=== PATIENT | female | born 1960 | race Caucasian/White ===

== ENCOUNTER 2020-04-10 11:28 | Observation (INO) | payer MEDICARE ==
--- NOTE | 2020-04-10 11:59 | XRAY ---
Indication: Chest pain. Comparison: None Portable chest demonstrates normal heart and lungs. Bony thorax intact.
[2020-04-10 12:17] LABS: Absolute Neutrophil Ct (ANC) 9.11 (1.4-6.9); BASOPHIL % 0.1 % (0.0-0.4); Basophil (Absolute #) 0.01 (0-0.4); Eosinophil % 0.2 % (0.00-5.0); Eosinophil (Absolute #) 0.02 (0-0.5); Hematocrit 38.2 % (35-47); Hemoglobin 12.7 gm/dl (12.0-16.0); Lymphocyte (Absolute #) 0.98 (1.0-4.6); Lymphocytes % 9.3 % (24.0-44.0); Mean Cell Volume 89.7 fl (78-100); Mean Corpuscular Hemoglobin 29.8 pg (26-32); Mean Corpuscular Hgb Concent. 33.2 g/dl (32-36); Mean Platelet Volume 9.9 fl (7.5-11.0); Monocyte (Absolute #) 0.43 (0.0-1.3); Monocytes % 4.1 % (0.0-12.0); Neutrophil % 86.3 % (36.0-66.0); Platelet Count 389 K/mm3 (150-450); Red Blood Count 4.26 M/mm3 (4.1-5.4); Red Cell Distribution Width 12.5 % (11.5-14.0); White Blood Count 10.6 K/mm3 (4.0-10.5)
[2020-04-10] MEDS ORDERED: Sodium Chloride 0.9% 1000 ML 1,000 ML IV STA (12:21)
[2020-04-10] MEDS ORDERED: Nitrostat 0.4 MG (ED) SL ONE ×2 (12:21→12:30)
[2020-04-10 12:24] LABS: INR 1.05 (0.8-3.0); PROTIME 11.9 SECONDS (9.95-12.35)
--- NOTE | 2020-04-10 12:30 | ERPHSYRPT ---
- History of Present Illness Time Seen by Provider: 04/10/20 12:10 Historian: patient, EMS Exam Limitations: no limitations Patient Subjective Stated Complaint: . Triage Nursing Assessment: . Physician History: 59 yo female bib ems for cp Started about 5am. left sided with radiation to left shoulder. Pt also experiencing reflux dz. Known CAD, last cath was 1 yr ago with "small blockage" which was not stented. Not similar to previous CPs. Worse with ambulation. Timing/Duration: today, hour(s) (7) Activities at Onset: rest Quality: sharpness, tightness Location: substernal, epigastric Chest Pain Radiation: arm Severity of Pain-Max: severe Severity of Pain-Current: moderate Modifying Factors: Improves With: nothing Prior Chest Pain/Cardiac Workup: angina Nitro Today/Relief: no nitro taken today Aspirin Treatment Today: no aspirin today Allergies/Adverse Reactions: ciprofloxacin [From Cipro] Allergy (Severe, Verified 04/10/20 11:47) codeine Allergy (Severe, Verified 04/10/20 11:47) suture Allergy (Severe, Verified 04/10/20 11:47) vicrol sutures Bisphosphonates Adverse Reaction (Verified 04/10/20 11:47) erythromycin base [From Staticin] Adverse Reaction (Verified 04/10/20 11:47) ethyl alcohol [From Staticin] Adverse Reaction (Verified 04/10/20 11:47) Home Medications: Azilsartan Medoxomil [Edarbi] 40 mg PO DAILY 04/10/20 [History] Cyclobenzaprine HCl 10 mg PO DAILY 04/10/20 [History] Duloxetine HCl 60 mg PO DAILY 04/10/20 [History] Levothyroxine Sodium [Synthroid] 112 tab PO DAILY 04/10/20 [History] Primidone 50 MG [Mysoline 50Mg] 50 mg PO DAILY 04/10/20 [History] Vilazodone HCl [Viibryd] 1 tab PO DAILY 04/10/20 [History] Hx Tetanus, Diphtheria Vaccination/Date Given: Yes Hx Influenza Vaccination/Date Given: Yes Hx Pneumococcal Vaccination/Date Given: No Immunizations Up to Date: Yes Travel Risk - International Travel Have you traveled outside of the country in past 3 weeks: No - Coronavirus Screening Are you exhibiting any of the following symptoms?: No Close contact with a COVID-19 positive Pt in past 14-21 Days: No - Review of Systems Constitutional: No Fever, No Chills Eyes: No Symptoms Ears, Nose, & Throat: No Symptoms Respiratory: No Cough, No Dyspnea Cardiac: Chest Pain, No Edema, No Syncope Abdominal/Gastrointestinal: No Abdominal Pain, No Nausea, No Vomiting, No Diarrhea Genitourinary Symptoms: No Dysuria Musculoskeletal: No Back Pain, No Neck Pain Skin: No Rash Neurological: No Dizziness, No Focal Weakness, No Sensory Changes Psychological: No Symptoms Endocrine: No Symptoms All Other Systems: Reviewed and Negative - Past Medical History Pertinent Past Medical History: Yes Neurological History: Migraines Cardiac History: Hypertension Endocrine Medical History: Diabetes Type I, Hypothyroidism Musculoskeletal History: Osteoarthritis GI Medical History: GERD, Irritable Bowel Psycho-Social History: Anxiety, Depression - Past Surgical History Past Surgical History: Yes Musculoskeletal: Orthopedic Surgery Female Surgical History: Hysterectomy, Tubal Ligation - Social History Smoking Status: Never smoker Exposure to second hand smoke: No Drug Use: none Patient Lives Alone: Yes - Nursing Vital Signs Nursing Vital Signs: Initial Vital Signs Temperature 98.0 F 04/10/20 11:35 Pulse Rate 110 H 04/10/20 11:35 Respiratory Rate 22 04/10/20 11:35 Blood Pressure 135/84 04/10/20 11:35 O2 Sat by Pulse Oximetry 100 04/10/20 11:35 Pain Scale Pain Intensity 5 - Physical Exam General Appearance: no apparent distress, alert Eye Exam: PERRL/EOMI, eyes nml inspection Ears, Nose, Throat Exam: normal ENT inspection, moist mucous membranes Neck Exam: normal inspection, non-tender, supple, full range of motion Respiratory Exam: normal breath sounds, lungs clear, No respiratory distress Cardiovascular Exam: regular rate/rhythm, normal heart sounds Gastrointestinal/Abdomen Exam: soft, No tenderness, No mass Back Exam: normal inspection, No CVA tenderness, No vertebral tenderness Extremity Exam: normal inspection, normal range of motion Neurologic Exam: alert, oriented x 3, cooperative, normal mood/affect, sensation nml, No motor deficits Skin Exam: normal color, warm, dry SpO2: 98 - Course EKG Interpreted by Me: Sinus Tach, NORMAL ST-T - Radiology Exams Chest X-ray Interpretation: Discussed w/ radiologist, Negative Ordered Tests: Active Orders 24 hr Category Date Time Status Bedrest ROUTINE Activity 04/10/20 13:42 Active Up With Assistance ROUTINE Activity 04/10/20 13:39 Active Admit as Inpatient ROUTINE Care 04/10/20 13:40 Active Call Admit Doctor for Orders ON ADMISSION Care 04/10/20 13:40 Active Hat Block Maker STAT Care 04/10/20 11:39 Active Code Status Order ROUTINE Care 04/10/20 13:39 Active EKG-ER Only STAT Care 04/10/20 11:38 Active Fall Protocol ROUTINE Care 04/10/20 13:42 Active IV Care Q6H Care 04/10/20 13:39 Active IV Insertion STAT Care 04/10/20 11:38 Active Intake and Output Q12H Care 04/10/20 13:39 Active Oxygen-ED Only Nasal Cannula 2 lpm Care 04/10/20 11:38 Active POCT Glucose Check ACHS Care 04/10/20 13:39 Active POCT Glucose Check STAT Care 04/10/20 12:26 Active Pulse Oximetry (ED) STAT Care 04/10/20 11:38 Active Telemetry q6h Care 04/10/20 13:39 Active Vital Signs Q2H Care 04/10/20 13:41 Active Clear Liquid Diet 04/10/20 Dinner Active CHEST 1 VIEW (PORTABLE) Stat Exams 04/10/20 11:38 Completed ABG [ARTERIAL BLOOD GASES] Stat Lab 04/10/20 13:05 Completed BMP Stat Lab 04/10/20 11:33 Completed CBC W DIFF AM.LAB Lab 04/11/20 04:00 Ordered CBC W DIFF Stat Lab 04/10/20 11:33 Completed CMP AM.LAB Lab 04/11/20 04:00 Ordered D-DIMER QUANTITATIVE Stat Lab 04/10/20 12:22 Completed Hepatic Function Panel Stat Lab 04/10/20 11:33 Completed LIPASE Stat Lab 04/10/20 11:33 Completed NT PRO BNP Stat Lab 04/10/20 11:33 Completed POCT GLUCOSE Stat Lab 04/10/20 13:41 Completed PROTIME WITH INR Stat Lab 04/10/20 11:33 Completed PTT Stat Lab 04/10/20 11:33 Completed TROPONIN Q3H Lab 04/10/20 11:33 Completed TROPONIN Q3H Lab 04/10/20 14:45 Ordered Medication Summary Generic Name Dose Route Start Last Admin Trade Name Freq PRN Reason Stop Dose Admin Acetaminophen 650 mg 04/10/20 13:39 Tylenol 325 Mg PO 05/10/20 13:38 Q4H PRN PRN PAIN AND/OR FEVER Insulin Human Regular 100 unit 100 mls @ 7.711 mls/hr 04/10/20 13:20 04/10/20 13:36 / Sodium Chloride IV 05/10/20 13:19 0.1 unit/kg/hr .[id number] PRN 7.711 mls/hr DKA/HYPERGLYCEMIA Administration Protocol 0.1 UNIT/KG/HR Sodium Chloride 1,000 mls @ 200 mls/hr 04/10/20 13:45 04/10/20 13:36 Sodium Chloride 0.9% 1000 Ml IV 05/10/20 13:44 200 mls/hr .Q5H RJ Administration Sodium Chloride 1,000 mls @ 100 mls/hr 04/10/20 13:45 Sodium Chloride 0.9% 1000 Ml IV 05/10/20 13:44 .Q10H RJ Ondansetron HCl 4 mg 04/10/20 13:39 Zofran 4 Mg/2 Ml Vial IV 05/10/20 13:38 Q6H PRN PRN NAUSEA/VOMITING Discontinued Medications Generic Name Dose Route Start Last Admin Trade Name Freq PRN Reason Stop Dose Admin Calcium Gluconate 1,000 mg 04/10/20 13:21 04/10/20 13:37 Calcium Gluconate 10% 1000 Mg IV 04/10/20 13:22 1,000 mg STAT ONE Administration Calcium Gluconate Confirm 04/10/20 13:27 Calcium Gluconate 10% 1000 Mg Administered 04/10/20 13:28 Dose 1,000 mg IV .STK-MED ONE Sodium Chloride 1,000 mls @ 999 mls/hr 04/10/20 12:21 04/10/20 12:35 Sodium Chloride 0.9% 1000 Ml IV 04/10/20 13:21 999 mls/hr .Q1H1M STA Administration Sodium Chloride Confirm 04/10/20 12:31 Sodium Chloride 0.9% 1000 Ml Administered 04/10/20 12:32 Dose 1,000 mls @ ud .ROUTE .STK-MED ONE Sodium Chloride Confirm 04/10/20 13:29 Sodium Chloride 0.9% 100 Ml Ivpb Administered 04/10/20 13:30 Dose 100 mls @ ud IV .STK-MED ONE Insulin Human Regular 10 unit 04/10/20 12:41 04/10/20 12:47 Humulin R IV 04/10/20 12:42 10 unit STAT ONE Administration Insulin Human Regular Confirm 04/10/20 12:47 Humulin R Administered 04/10/20 12:48 Dose 10 unit .ROUTE .STK-MED ONE Insulin Human Regular Confirm 04/10/20 13:29 Humulin R Administered 04/10/20 13:30 Dose 100 unit .ROUTE .STK-MED ONE Nitroglycerin 0.4 mg 04/10/20 12:21 04/10/20 12:35 Nitrostat 0.4 Mg (Ed) SL 04/10/20 12:22 0.4 mg STAT ONE Administration Nitroglycerin Confirm 04/10/20 12:30 Nitrostat 0.4 Mg (Ed) Administered 04/10/20 12:31 Dose 0.4 mg SL .STK-MED ONE Sodium Bicarbonate 50 meq 04/10/20 13:21 04/10/20 13:36 Sodium Bicarbonate 50 Meq/50 Ml Abboject IV 04/10/20 13:22 50 meq STAT ONE Administration Sodium Bicarbonate Confirm 04/10/20 13:29 Sodium Bicarbonate 50 Meq/50 Ml Abboject Administered 04/10/20 13:30 Dose 50 meq IV .STK-MED ONE Lab/Rad Data: Laboratory Result Diagrams 04/10/20 11:33 04/10/20 11:33 Laboratory Results 04/10/20 04/10/20 04/10/20 Range/Units 13:41 13:05 12:22 WBC (4.0-10.5) K/mm3 RBC (4.1-5.4) M/mm3 Hgb (12.0-16.0) gm/dl Hct (35-47) % MCV (78-100) fl MCH (26-32) pg MCHC (32-36) g/dl RDW (11.5-14.0) % Plt Count (150-450) K/mm3 MPV (7.5-11.0) fl Gran % (36.0-66.0) % Eos # (Auto) (0-0.5) Absolute Lymphs (auto) (1.0-4.6) Absolute Monos (auto) (0.0-1.3) Lymphocytes % (24.0-44.0) % Monocytes % (0.0-12.0) % Eosinophils % (0.00-5.0) % Basophils % (0.0-0.4) % Absolute Granulocytes (1.4-6.9) Basophils # (0-0.4) PT (9.95-12.35) SECONDS INR (0.8-3.0) APTT (25.3-37.0) SECONDS D-Dimer 264 (215-500) ng/mL Puncture Site RIGHT BRACHIAL pCO2 25 L (35-45) mmHg pO2 92 (75-100) mmHg Base Excess -13.6 L (-2.0-2.0) O2 Saturation 96.2 (94-100) g/dF ABG pH 7.27 L (7.35-7.45) ABG HCO3 11.5 L* (22-28) ABG O2 Sat (Measured) 97.2 (95-100) % Wade Test NOT APPLICABLE A-a Gradient 26 a/A Ratio 0.78 Hemoglobin 12.2 Carboxyhemoglobin 0.4 (0.0-6.9) % THgb Methemoglobin 0.7 L (1.4-1.5) % Temperature 37.0 C POC O2 Flow Rate 21 % Sodium (137-145) mmol/L Potassium 4.9 (3.5-5.1) mmol/L Chloride (98-107) mmol/L Carbon Dioxide (22-30) mmol/L Anion Gap (5-15) MEQ/L BUN (7-17) mg/dL Creatinine (0.52-1.04) mg/dL Estimated GFR ML/MIN Glucose (74-106) mg/dL POC Glucometer 390 H (74 to 106) mg/dL Calcium (8.4-10.2) mg/dL Total Bilirubin (0.2-1.3) mg/dL Direct Bilirubin (0.0-0.4) mg/dL AST (14-36) U/L ALT (0-35) U/L Alkaline Phosphatase (38-126) U/L Troponin I (0.000-0.034) ng/mL NT-Pro-B Natriuret Pep (0-900) pg/mL Serum Total Protein (6.3-8.2) g/dL Albumin (3.5-5.0) g/dL Lipase (23-300) U/L 04/10/20 04/10/20 04/10/20 Range/Units 11:33 11:33 11:33 WBC (4.0-10.5) K/mm3 RBC (4.1-5.4) M/mm3 Hgb (12.0-16.0) gm/dl Hct (35-47) % MCV (78-100) fl MCH (26-32) pg MCHC (32-36) g/dl RDW (11.5-14.0) % Plt Count (150-450) K/mm3 MPV (7.5-11.0) fl Gran % (36.0-66.0) % Eos # (Auto) (0-0.5) Absolute Lymphs (auto) (1.0-4.6) Absolute Monos (auto) (0.0-1.3) Lymphocytes % (24.0-44.0) % Monocytes % (0.0-12.0) % Eosinophils % (0.00-5.0) % Basophils % (0.0-0.4) % Absolute Granulocytes (1.4-6.9) Basophils # (0-0.4) PT 11.9 (9.95-12.35) SECONDS INR 1.05 (0.8-3.0) APTT 34.0 (25.3-37.0) SECONDS D-Dimer (215-500) ng/mL Puncture Site pCO2 (35-45) mmHg pO2 (75-100) mmHg Base Excess (-2.0-2.0) O2 Saturation (94-100) g/dF ABG pH (7.35-7.45) ABG HCO3 (22-28) ABG O2 Sat (Measured) (95-100) % Wade Test A-a Gradient a/A Ratio Hemoglobin Carboxyhemoglobin (0.0-6.9) % THgb Methemoglobin (1.4-1.5) % Temperature C POC O2 Flow Rate % Sodium 124 L (137-145) mmol/L Potassium 5.5 H (3.5-5.1) mmol/L Chloride 88 L (98-107) mmol/L Carbon Dioxide 16 L* (22-30) mmol/L Anion Gap 25.4 H (5-15) MEQ/L BUN 18 H (7-17) mg/dL Creatinine 0.89 (0.52-1.04) mg/dL Estimated GFR > 60.0 ML/MIN Glucose 518 H* (74-106) mg/dL POC Glucometer (74 to 106) mg/dL Calcium 9.5 (8.4-10.2) mg/dL Total Bilirubin 0.50 (0.2-1.3) mg/dL Direct Bilirubin 0.2 (0.0-0.4) mg/dL AST 27 (14-36) U/L ALT 19 (0-35) U/L Alkaline Phosphatase 225 H (38-126) U/L Troponin I < 0.012 (0.000-0.034) ng/mL NT-Pro-B Natriuret Pep 123 (0-900) pg/mL Serum Total Protein 8.2 (6.3-8.2) g/dL Albumin 4.8 (3.5-5.0) g/dL Lipase 36 (23-300) U/L 04/10/20 Range/Units 11:33 WBC 10.6 H (4.0-10.5) K/mm3 RBC 4.26 (4.1-5.4) M/mm3 Hgb 12.7 (12.0-16.0) gm/dl Hct 38.2 (35-47) % MCV 89.7 (78-100) fl MCH 29.8 (26-32) pg MCHC 33.2 (32-36) g/dl RDW 12.5 (11.5-14.0) % Plt Count 389 (150-450) K/mm3 MPV 9.9 (7.5-11.0) fl Gran % 86.3 H (36.0-66.0) % Eos # (Auto) 0.02 (0-0.5) Absolute Lymphs (auto) 0.98 L (1.0-4.6) Absolute Monos (auto) 0.43 (0.0-1.3) Lymphocytes % 9.3 L (24.0-44.0) % Monocytes % 4.1 (0.0-12.0) % Eosinophils % 0.2 (0.00-5.0) % Basophils % 0.1 (0.0-0.4) % Absolute Granulocytes 9.11 H (1.4-6.9) Basophils # 0.01 (0-0.4) PT (9.95-12.35) SECONDS INR (0.8-3.0) APTT (25.3-37.0) SECONDS D-Dimer (215-500) ng/mL Puncture Site pCO2 (35-45) mmHg pO2 (75-100) mmHg Base Excess (-2.0-2.0) O2 Saturation (94-100) g/dF ABG pH (7.35-7.45) ABG HCO3 (22-28) ABG O2 Sat (Measured) (95-100) % Wade Test A-a Gradient a/A Ratio Hemoglobin Carboxyhemoglobin (0.0-6.9) % THgb Methemoglobin (1.4-1.5) % Temperature C POC O2 Flow Rate % Sodium (137-145) mmol/L Potassium (3.5-5.1) mmol/L Chloride (98-107) mmol/L Carbon Dioxide (22-30) mmol/L Anion Gap (5-15) MEQ/L BUN (7-17) mg/dL Creatinine (0.52-1.04) mg/dL Estimated GFR ML/MIN Glucose (74-106) mg/dL POC Glucometer (74 to 106) mg/dL Calcium (8.4-10.2) mg/dL Total Bilirubin (0.2-1.3) mg/dL Direct Bilirubin (0.0-0.4) mg/dL AST (14-36) U/L ALT (0-35) U/L Alkaline Phosphatase (38-126) U/L Troponin I (0.000-0.034) ng/mL NT-Pro-B Natriuret Pep (0-900) pg/mL Serum Total Protein (6.3-8.2) g/dL Albumin (3.5-5.0) g/dL Lipase (23-300) U/L - Progress Progress: improved Air Movement: good Progress Note: 04/10/20 13:48 CP resolved. NTG did not help except for TUCKER and burning in mouth. Labs show DKA. IVF, insulin drip, Na bicar, calcium gluconate. Will admit for treatment. Pt agrees with plan. Blood Culture(s) Obtained: No Antibiotics given: No Discussed with : Naina Will see patient in: hospital (full admit) Counseled pt/family regarding: lab results, diagnosis, rad results - Departure Departure Disposition: In-patient Admission Clinical Impression: DKA (diabetic ketoacidoses), Chest pain Condition: Stable Critical Care Time: No
[2020-04-10] MEDS ORDERED: Sodium Chloride 0.9% 1000 ML 1,000 ML ONE (12:31)
[2020-04-10 12:38] LABS: ALBUMIN 4.8 g/dL (3.5-5.0); ALKALINE PHOSPHATASE 225 U/L (38-126); ANION GAP 25.4 MEQ/L (5-15); BLOOD UREA NITROGEN 18 mg/dL (7-17); CHLORIDE 88 mmol/L (98-107); Calcium 9.5 mg/dL (8.4-10.2); Creatinine 1 0.89 mg/dL (0.52-1.04); Direct Bilirubin 0.2 mg/dL (0.0-0.4); EST GLOMERULAR FILTRATION RATE > 60.0 ML/MIN; LIPASE 36 U/L (23-300); NT PRO BNP 123 pg/mL (0-900); Potassium 5.5 mmol/L (3.5-5.1); SGOT/AST 27 U/L (14-36); SGPT/ALT 19 U/L (0-35); SODIUM 124 mmol/L (137-145); Total Protein 8.2 g/dL (6.3-8.2)
[2020-04-10] MEDS ORDERED: HUMULIN R IV ONE (12:41)
[2020-04-10 12:42] LABS: Carbon Dioxide 16 mmol/L (22-30); Glucose 518 mg/dL (74-106)
[2020-04-10] MEDS ORDERED: HUMULIN R ONE ×2 (12:47→13:29)
[2020-04-10 13:14] LABS: A-aADO2 26; ABG HEMOGLOBIN 12.2; ABG POTASSIUM 4.9 (3.5-5.1); ABG SITE RIGHT BRACHIAL; ARTERIAL BLD GAS O2 SATURATION 97.2 % (95-100); ARTERIAL BLOOD GAS BASE EXCESS -13.6 (-2.0-2.0); ARTERIAL BLOOD GAS FIO2 21 %; ARTERIAL BLOOD GAS PCO2 25 mmHg (35-45); ARTERIAL BLOOD GAS PO2 92 mmHg (75-100); ARTERIAL BLOOD GAS pH 7.27 (7.35-7.45); CARBOXYHEMOGLOBIN 0.4 % THgb (0.0-6.9); HCO3- 11.5 (22-28); HGB O2 SAT 96.2 g/dF (94-100); Methhemoglobin 0.7 % (1.4-1.5); paO2 pAO1 0.78
[2020-04-10] MEDS ORDERED: HUMULIN R 100 UNIT in Sodium Chloride 0.9% 100 ML IVPB 100 ML IV PRN (13:20)
[2020-04-10] MEDS ORDERED: SODIUM BICARBONATE 50 MEQ/50 ML ABBOJECT IV ONE ×2 (13:21→13:29)
[2020-04-10] MEDS ORDERED: Calcium Gluconate 10% 1000 MG IV ONE ×2 (13:21→13:27)
[2020-04-10] MEDS ORDERED: Sodium Chloride 0.9% 100 ML IVPB 100 ML IV ONE (13:29)
[2020-04-10] MEDS ORDERED: Zofran 4 MG/2 ML VIAL IV PRN (13:39)
[2020-04-10] MEDS ORDERED: TYLENOL 325 MG PO PRN (13:39)
[2020-04-10] MEDS ORDERED: Sodium Chloride 0.9% 1000 ML 1,000 ML IV SCH (13:45)
[2020-04-10] MEDS: Sodium Chloride 0.9% 1000 ML 1,000 ML IV SCH ×2 (14:57→18:21)
[2020-04-10 15:39] LABS: ANION GAP 17.3 MEQ/L (5-15); BLOOD UREA NITROGEN 18 mg/dL (7-17); CHLORIDE 95 mmol/L (98-107); Calcium 9.8 mg/dL (8.4-10.2); Carbon Dioxide 21 mmol/L (22-30); Creatinine 1 0.75 mg/dL (0.52-1.04); EST GLOMERULAR FILTRATION RATE > 60.0 ML/MIN; Glucose 225 mg/dL (74-106); Potassium 4.1 mmol/L (3.5-5.1); SODIUM 130 mmol/L (137-145)
[2020-04-10] MEDS ORDERED: Lantus Insulin SQ ONE (16:33)
[2020-04-10] MEDS ORDERED: HUMALOG SQ PRN (16:41)
[2020-04-10] MEDS ORDERED: MEDICATION INTERVENTION MC SCH ×2 (17:00)
[2020-04-10] MEDS ORDERED: MAALOX ES 30 ML UNIT DOSE ONE (18:18)
[2020-04-10] MEDS ORDERED: MAALOX ES 30 ML UNIT DOSE PO ONE (18:21)
[2020-04-10] MEDS ORDERED: MAALOX ES 30 ML UNIT DOSE PO PRN (19:19)
[2020-04-10] MEDS ORDERED: PROTONIX 40 MG IV IV SCH (19:30)
[2020-04-10] MEDS ORDERED: BENADRYL 25 MG CAPSULE PO SCH (22:00)
[2020-04-10] MEDS ORDERED: AZILSARTAN MEDOXOMIL 40 MG PO SCH (22:00)
[2020-04-10] MEDS ORDERED: NON-FORMULARY ITEM (Duloxetine Hcl [Duloxetine Hcl] 60 MG) PO SCH (22:00)
[2020-04-10] MEDS ORDERED: [UNRECOGNIZED DRUG - REMARK] PO SCH (22:00)
[2020-04-10] MEDS ORDERED: MYSOLINE 50MG PO SCH (22:00)
[2020-04-10] MEDS ORDERED: Cymbalta 30 MG Capsule PO SCH (22:00)
[2020-04-11] MEDS: Sodium Chloride 0.9% 1000 ML 1,000 ML IV SCH (03:57)
[2020-04-11 04:42] VITALS: O2SAT 98
[2020-04-11 05:11] LABS: Absolute Neutrophil Ct (ANC) 4.09 (1.4-6.9); BASOPHIL % 0.3 % (0.0-0.4); Basophil (Absolute #) 0.02 (0-0.4); Eosinophil % 1.6 % (0.00-5.0); Eosinophil (Absolute #) 0.12 (0-0.5); Hemoglobin 10.5 gm/dl (12.0-16.0); Lymphocyte (Absolute #) 2.37 (1.0-4.6); Mean Cell Volume 91.2 fl (78-100); Mean Corpuscular Hemoglobin 29.9 pg (26-32); Mean Corpuscular Hgb Concent. 32.8 g/dl (32-36); Mean Platelet Volume 9.3 fl (7.5-11.0); Monocytes % 10.8 % (0.0-12.0); Neutrophil % 55.3 % (36.0-66.0); Platelet Count 360 K/mm3 (150-450); Red Blood Count 3.51 M/mm3 (4.1-5.4); Red Cell Distribution Width 12.8 % (11.5-14.0); White Blood Count 7.4 K/mm3 (4.0-10.5)
[2020-04-11 05:29] LABS: ALBUMIN 3.6 g/dL (3.5-5.0); ALKALINE PHOSPHATASE 140 U/L (38-126); ANION GAP 13.1 MEQ/L (5-15); BLOOD UREA NITROGEN 10 mg/dL (7-17); CHLORIDE 101 mmol/L (98-107); Calcium 8.6 mg/dL (8.4-10.2); Carbon Dioxide 21 mmol/L (22-30); Creatinine 1 0.68 mg/dL (0.52-1.04); EST GLOMERULAR FILTRATION RATE > 60.0 ML/MIN; Glucose 103 mg/dL (74-106); Potassium 4.4 mmol/L (3.5-5.1); SGOT/AST 30 U/L (14-36); SGPT/ALT 14 U/L (0-35); SODIUM 132 mmol/L (137-145); Total Protein 6.4 g/dL (6.3-8.2)
[2020-04-11 07:33] VITALS: BP 124/78; PULSE 92
[2020-04-11] MEDS ORDERED: VILAZODONE HCL PO SCH (10:00)
[2020-04-11] MEDS ORDERED: SYNTHROID 112 MCG PO SCH (10:00)
--- NOTE | 2020-04-11 20:23 | PCM.SSS ---
History of Present Illness - Chief Complaint Chief Complaint: DKA, CP R/O Date: 04/11/20 History of Present Illness: is a 59 year old female seen and examined following ER admission for chest pain and DKA. Patient reports that she was having chest pain that it felt like a pressure sensation and she couldnt catch her breath. Patient reports that she wasnt aware that her her BS were elevated. She reports this she bent the needle of her insulin pump and does not think it was working properly. She reports that she had a TUCKER yesterday and continues to have a mild TUCKER this am. Patient also reports that Medications & Allergies Home Medications: Home Medication List Azilsartan Medoxomil [Edarbi] 40 mg PO HS 04/10/20 [History Confirmed 04/10/20] Cyclobenzaprine HCl 10 mg PO HS 04/10/20 [History Confirmed 04/10/20] Diphenhydramine HCl 25 mg [Benadryl 25 mg Capsule] 25 mg PO Q4H PRN PRN 04/10/20 [History Confirmed 04/10/20] Diphenhydramine HCl [Benadryl Allergy] 50 mg PO HS 04/10/20 [History Confirmed 04/10/20] Duloxetine HCl 60 mg PO HS 04/10/20 [History Confirmed 04/10/20] Levothyroxine Sodium [Synthroid] 112 mcg PO DAILY 04/10/20 [History Confirmed 04/10/20] Primidone 50 MG [Mysoline 50Mg] 50 mg PO HS 04/10/20 [History Confirmed 04/10/20] Vilazodone HCl [Viibryd] 1 tab PO DAILY 04/10/20 [History Confirmed 04/10/20] PANTOPRAZOLE 40 mg Tablet [Protonix 40MG Tablet] 40 mg PO DAILY 30 Days tab 04/11/20 [Rx] Allergies/Adverse Reactions: Allergies Allergy/AdvReac Type Severity Reaction Status Date / Time ciprofloxacin [From Cipro] Allergy Severe Verified 04/10/20 11:47 codeine Allergy Severe Verified 04/10/20 11:47 suture Allergy Severe Verified 04/10/20 11:47 Bisphosphonates AdvReac Verified 04/10/20 11:47 erythromycin base AdvReac Verified 04/10/20 11:47 [From Staticin] ethyl alcohol [From Staticin] AdvReac Verified 04/10/20 11:47 - Past Medical History Past Medical History: Yes Neurological History: Migraines Cardiac History: Hypertension Respiratory History: Sleep Apnea Endocrine Medical History: Diabetes Type I, Hypothyroidism Musculoskelatal History: Osteoarthritis GI Medical History: GERD, Irritable Bowel Pyscho-Social History: Anxiety, Depression - Female History Are you now?: No - Past Surgical History Past Surgical History: Yes Musculskeletal Surgical Hx: Orthopedic Surgery Female Surgical History: Hysterectomy, Tubal Ligation - Social History Smoking Status: Never smoker Exposure to second hand smoke: No Alcohol: None Drug Use: none - Physical Exam Vital Signs: Vital Signs - 24 hr Temp Pulse Resp BP Pulse Ox 04/11/20 07:35 98 04/11/20 07:31 98 F 92 H 18 124/78 98 04/11/20 04:00 98.4 F 103 H 18 113/44 98 04/11/20 00:01 75 04/11/20 00:00 98.5 F 102 H 18 117/60 97 04/10/20 20:00 98.3 F 75 24 106/59 98 Results - Labs Lab/Micro Results: Lab Results-Last 24 Hours 04/10/20 04/10/20 04/11/20 Range/Units 19:51 23:59 03:57 WBC (4.0-10.5) K/mm3 RBC (4.1-5.4) M/mm3 Hgb (12.0-16.0) gm/dl Hct (35-47) % MCV (78-100) fl MCH (26-32) pg MCHC (32-36) g/dl RDW (11.5-14.0) % Plt Count (150-450) K/mm3 MPV (7.5-11.0) fl Gran % (36.0-66.0) % Eos # (Auto) (0-0.5) Absolute Lymphs (auto) (1.0-4.6) Absolute Monos (auto) (0.0-1.3) Lymphocytes % (24.0-44.0) % Monocytes % (0.0-12.0) % Eosinophils % (0.00-5.0) % Basophils % (0.0-0.4) % Absolute Granulocytes (1.4-6.9) Basophils # (0-0.4) Sodium (137-145) mmol/L Potassium (3.5-5.1) mmol/L Chloride (98-107) mmol/L Carbon Dioxide (22-30) mmol/L Anion Gap (5-15) MEQ/L BUN (7-17) mg/dL Creatinine (0.52-1.04) mg/dL Estimated GFR ML/MIN Glucose (74-106) mg/dL POC Glucometer 282 H 166 H 94 (74 to 106) mg/dL Calcium (8.4-10.2) mg/dL Total Bilirubin (0.2-1.3) mg/dL AST (14-36) U/L ALT (0-35) U/L Alkaline Phosphatase (38-126) U/L Serum Total Protein (6.3-8.2) g/dL Albumin (3.5-5.0) g/dL 04/11/20 04/11/20 04/11/20 Range/Units 04:20 04:20 07:27 WBC 7.4 (4.0-10.5) K/mm3 RBC 3.51 L (4.1-5.4) M/mm3 Hgb 10.5 L (12.0-16.0) gm/dl Hct 32.0 L (35-47) % MCV 91.2 (78-100) fl MCH 29.9 (26-32) pg MCHC 32.8 (32-36) g/dl RDW 12.8 (11.5-14.0) % Plt Count 360 (150-450) K/mm3 MPV 9.3 (7.5-11.0) fl Gran % 55.3 (36.0-66.0) % Eos # (Auto) 0.12 (0-0.5) Absolute Lymphs (auto) 2.37 (1.0-4.6) Absolute Monos (auto) 0.80 (0.0-1.3) Lymphocytes % 32.0 (24.0-44.0) % Monocytes % 10.8 (0.0-12.0) % Eosinophils % 1.6 (0.00-5.0) % Basophils % 0.3 (0.0-0.4) % Absolute Granulocytes 4.09 (1.4-6.9) Basophils # 0.02 (0-0.4) Sodium 132 L (137-145) mmol/L Potassium 4.4 (3.5-5.1) mmol/L Chloride 101 (98-107) mmol/L Carbon Dioxide 21 L (22-30) mmol/L Anion Gap 13.1 (5-15) MEQ/L BUN 10 (7-17) mg/dL Creatinine 0.68 (0.52-1.04) mg/dL Estimated GFR > 60.0 ML/MIN Glucose 103 (74-106) mg/dL POC Glucometer 99 (74 to 106) mg/dL Calcium 8.6 (8.4-10.2) mg/dL Total Bilirubin 0.40 (0.2-1.3) mg/dL AST 30 (14-36) U/L ALT 14 (0-35) U/L Alkaline Phosphatase 140 H (38-126) U/L Serum Total Protein 6.4 (6.3-8.2) g/dL Albumin 3.6 (3.5-5.0) g/dL 04/11/20 Range/Units 10:57 WBC (4.0-10.5) K/mm3 RBC (4.1-5.4) M/mm3 Hgb (12.0-16.0) gm/dl Hct (35-47) % MCV (78-100) fl MCH (26-32) pg MCHC (32-36) g/dl RDW (11.5-14.0) % Plt Count (150-450) K/mm3 MPV (7.5-11.0) fl Gran % (36.0-66.0) % Eos # (Auto) (0-0.5) Absolute Lymphs (auto) (1.0-4.6) Absolute Monos (auto) (0.0-1.3) Lymphocytes % (24.0-44.0) % Monocytes % (0.0-12.0) % Eosinophils % (0.00-5.0) % Basophils % (0.0-0.4) % Absolute Granulocytes (1.4-6.9) Basophils # (0-0.4) Sodium (137-145) mmol/L Potassium (3.5-5.1) mmol/L Chloride (98-107) mmol/L Carbon Dioxide (22-30) mmol/L Anion Gap (5-15) MEQ/L BUN (7-17) mg/dL Creatinine (0.52-1.04) mg/dL Estimated GFR ML/MIN Glucose (74-106) mg/dL POC Glucometer 200 H (74 to 106) mg/dL Calcium (8.4-10.2) mg/dL Total Bilirubin (0.2-1.3) mg/dL AST (14-36) U/L ALT (0-35) U/L Alkaline Phosphatase (38-126) U/L Serum Total Protein (6.3-8.2) g/dL Albumin (3.5-5.0) g/dL Accuchecks Date 04/11/20 Date 04/11/20 Date 04/11/20 Date 04/11/20 Date 04/10/20 Time 11:00 Time 07:45 Time 03:55 Time 00:00 Time 20:00 - Radiology Impressions Radiology Exams & Impressions: Radiology Procedures Category Date Time Status CHEST 1 VIEW (PORTABLE) Stat Exams 04/10/20 11:38 Completed Hospital Summary - Vitals & Intake/Output Vital Signs: Vital Signs Temperature 98 F 04/11/20 07:31 Pulse Rate 92 H 04/11/20 07:31 Respiratory Rate 18 04/11/20 07:31 Blood Pressure 124/78 04/11/20 07:31 O2 Sat by Pulse Oximetry 98 04/11/20 07:35 Intake & Output: Intake & Output 04/09/20 04/10/20 04/11/20 04/12/20 11:59 11:59 11:59 11:59 Intake Total 1870 Output Total 550 Balance 1320 Weight 77.111 kg 77 kg - Lab Result Diagrams: 04/11/20 04:20 04/11/20 04:20 Lab Results-Last 24 Hrs: Lab Results-Last 24 Hours 04/10/20 04/10/20 04/11/20 Range/Units 19:51 23:59 03:57 WBC (4.0-10.5) K/mm3 RBC (4.1-5.4) M/mm3 Hgb (12.0-16.0) gm/dl Hct (35-47) % MCV (78-100) fl MCH (26-32) pg MCHC (32-36) g/dl RDW (11.5-14.0) % Plt Count (150-450) K/mm3 MPV (7.5-11.0) fl Gran % (36.0-66.0) % Eos # (Auto) (0-0.5) Absolute Lymphs (auto) (1.0-4.6) Absolute Monos (auto) (0.0-1.3) Lymphocytes % (24.0-44.0) % Monocytes % (0.0-12.0) % Eosinophils % (0.00-5.0) % Basophils % (0.0-0.4) % Absolute Granulocytes (1.4-6.9) Basophils # (0-0.4) Sodium (137-145) mmol/L Potassium (3.5-5.1) mmol/L Chloride (98-107) mmol/L Carbon Dioxide (22-30) mmol/L Anion Gap (5-15) MEQ/L BUN (7-17) mg/dL Creatinine (0.52-1.04) mg/dL Estimated GFR ML/MIN Glucose (74-106) mg/dL POC Glucometer 282 H 166 H 94 (74 to 106) mg/dL Calcium (8.4-10.2) mg/dL Total Bilirubin (0.2-1.3) mg/dL AST (14-36) U/L ALT (0-35) U/L Alkaline Phosphatase (38-126) U/L Serum Total Protein (6.3-8.2) g/dL Albumin (3.5-5.0) g/dL 04/11/20 04/11/20 04/11/20 Range/Units 04:20 04:20 07:27 WBC 7.4 (4.0-10.5) K/mm3 RBC 3.51 L (4.1-5.4) M/mm3 Hgb 10.5 L (12.0-16.0) gm/dl Hct 32.0 L (35-47) % MCV 91.2 (78-100) fl MCH 29.9 (26-32) pg MCHC 32.8 (32-36) g/dl RDW 12.8 (11.5-14.0) % Plt Count 360 (150-450) K/mm3 MPV 9.3 (7.5-11.0) fl Gran % 55.3 (36.0-66.0) % Eos # (Auto) 0.12 (0-0.5) Absolute Lymphs (auto) 2.37 (1.0-4.6) Absolute Monos (auto) 0.80 (0.0-1.3) Lymphocytes % 32.0 (24.0-44.0) % Monocytes % 10.8 (0.0-12.0) % Eosinophils % 1.6 (0.00-5.0) % Basophils % 0.3 (0.0-0.4) % Absolute Granulocytes 4.09 (1.4-6.9) Basophils # 0.02 (0-0.4) Sodium 132 L (137-145) mmol/L Potassium 4.4 (3.5-5.1) mmol/L Chloride 101 (98-107) mmol/L Carbon Dioxide 21 L (22-30) mmol/L Anion Gap 13.1 (5-15) MEQ/L BUN 10 (7-17) mg/dL Creatinine 0.68 (0.52-1.04) mg/dL Estimated GFR > 60.0 ML/MIN Glucose 103 (74-106) mg/dL POC Glucometer 99 (74 to 106) mg/dL Calcium 8.6 (8.4-10.2) mg/dL Total Bilirubin 0.40 (0.2-1.3) mg/dL AST 30 (14-36) U/L ALT 14 (0-35) U/L Alkaline Phosphatase 140 H (38-126) U/L Serum Total Protein 6.4 (6.3-8.2) g/dL Albumin 3.6 (3.5-5.0) g/dL 04/11/20 Range/Units 10:57 WBC (4.0-10.5) K/mm3 RBC (4.1-5.4) M/mm3 Hgb (12.0-16.0) gm/dl Hct (35-47) % MCV (78-100) fl MCH (26-32) pg MCHC (32-36) g/dl RDW (11.5-14.0) % Plt Count (150-450) K/mm3 MPV (7.5-11.0) fl Gran % (36.0-66.0) % Eos # (Auto) (0-0.5) Absolute Lymphs (auto) (1.0-4.6) Absolute Monos (auto) (0.0-1.3) Lymphocytes % (24.0-44.0) % Monocytes % (0.0-12.0) % Eosinophils % (0.00-5.0) % Basophils % (0.0-0.4) % Absolute Granulocytes (1.4-6.9) Basophils # (0-0.4) Sodium (137-145) mmol/L Potassium (3.5-5.1) mmol/L Chloride (98-107) mmol/L Carbon Dioxide (22-30) mmol/L Anion Gap (5-15) MEQ/L BUN (7-17) mg/dL Creatinine (0.52-1.04) mg/dL Estimated GFR ML/MIN Glucose (74-106) mg/dL POC Glucometer 200 H (74 to 106) mg/dL Calcium (8.4-10.2) mg/dL Total Bilirubin (0.2-1.3) mg/dL AST (14-36) U/L ALT (0-35) U/L Alkaline Phosphatase (38-126) U/L Serum Total Protein (6.3-8.2) g/dL Albumin (3.5-5.0) g/dL Micro Results-Entire Visit: Accuchecks Date 04/11/20 Date 04/11/20 Date 04/11/20 Date 04/11/20 Date 04/10/20 Time 11:00 Time 07:45 Time 03:55 Time 00:00 Time 20:00 - Radiology Exams Ordered Rad Exams-Entire Visit: Radiology Procedures Category Date Time Status CHEST 1 VIEW (PORTABLE) Stat Exams 04/10/20 11:38 Completed - Procedures and Test Procedures and Tests throughout Hospitalization: Therapy Orders & Screens 04/10/20 18:14 EKG ONCE Comment: Diagnosis: cp r/o dka 04/10/20 18:27 Oxygen NASAL CANNULA 2 lpm Comment: Diagnosis: cp r/o dka - Discharge Disposition: Home, Self-Care Condition: Stable Prescriptions: New PANTOPRAZOLE 40 mg Tablet [Protonix 40MG Tablet] 40 mg PO DAILY 30 Days tab Continue Vilazodone HCl [Viibryd] 1 tab PO DAILY Primidone 50 MG [Mysoline 50Mg] 50 mg PO HS Levothyroxine Sodium [Synthroid] 112 mcg PO DAILY Duloxetine HCl 60 mg PO HS Cyclobenzaprine HCl 10 mg PO HS Azilsartan Medoxomil [Edarbi] 40 mg PO HS Diphenhydramine HCl 25 mg [Benadryl 25 mg Capsule] 25 mg PO Q4H PRN PRN PRN Reason: Allergies Diphenhydramine HCl [Benadryl Allergy] 50 mg PO HS Instructions: Heart Healthy Diet, Chest Pain (DC), Heart Disease in Diabetics (DC), Diabetic Ketoacidosis (DC) Additional Instructions: Follow up with your Food Service Ambassador as scheduled. Follow up with your dough puncher Dr.Thomas Aguilar on 04/21/20@ 12:20p.m. Follow up with PCP Michelle Arceo NP on 04/13/20@ 9:00a.m.
[2020-04-11] MEDS ORDERED: PROTONIX 40 MG IV IV SCH (22:00)
== END 2020-04-11 11:15 | disposition home or self-care (01) ==
LOC: ED 11:28 → INTOOBSV 14:10 → ICU 14:10
PROVIDERS: ADMIT Family Medicine; ATTEND Family Medicine
DX: R07.9 Chest pain, unspecified (principal); E10.10 Type 1 diabetes mellitus with ketoacidosis without coma; I10 Essential (primary) hypertension; R51 Headache; E03.9 Hypothyroidism, unspecified; G47.30 Sleep apnea, unspecified; Z79.899 Other long term (current) drug therapy
CPT/HCPCS: 36000; 36415; 36600; 71045; 80048; 80053; 80076; 82375; 82803; 82962; 83036; 83690; 83880; 84484; 85025; 85379; 85610; 85730; 93005; 93041; 93268; 94760; 96360; 96361; 96374; 96375; 99285; G0378; J0610; J1815; J1817; A9270-GY